=== PATIENT | male | born 1940 | race Caucasian/White ===

== ENCOUNTER 2020-10-23 21:27 | Inpatient (IN) | payer OTHER ==
[~2020-10-23] VITALS: Ht 177.8 cm; Wt 89.2 kg
[2020-10-23 21:33] VITALS: BP 187/99
[2020-10-23 22:05] LABS: ABSOLUTE EOSINOPHILS 0.3 thou/uL (0.0-0.7); ABSOLUTE MONOCYTES 0.7 thou/uL (0.0-1.2); ABSOLUTE NEUTROPHILS 6.9 thou/uL (1.6-8.1); BASOPHILS 0.4 %; EOSINOPHILS 3.1 %; HEMATOCRIT 44.7 % (42.0-52.0); HEMOGLOBIN 15.3 gm/dL (14.0-18.0); LYMPHOCYTES 19.7 %; MCH 30.1 pg (26.0-34.0); MCHC 34.3 g/dL (28.0-37.0); MCV 87.8 fL (80.0-100.0); MPV 9.4 fl. (7.2-11.1); NUCLEATED RBCS 0 /100WBC; PLATELET COUNT* 221 thou/uL (150-400); POLYS 69.8 %; RBC 5.09 mil/uL (4.50-6.00); RDW-CV 12.9 % (10.5-14.5); WBC 9.9 thou/uL (4.0-11.0)
[2020-10-23 22:10] LABS: CREATININE 1.4 mg/dL (0.6-1.3)
[2020-10-23] MEDS ORDERED: ELIQUIS5 MG PO (22:12)
[2020-10-23] MEDS ORDERED: ASA81BEC PO (22:12)
[2020-10-23] MEDS ORDERED: CARBIDOPA-LEVO1 EAC5 PO (22:14)
[2020-10-23] MEDS ORDERED: B COMPLEX1 EACH PO (22:14)
[2020-10-23] MEDS ORDERED: CHOLECALCIFEROL1 GM PO (22:16)
[2020-10-23] MEDS ORDERED: COQ-1030 MG PO (22:17)
[2020-10-23] MEDS ORDERED: FISH OIL 1,0001 EAC9 PO (22:18)
[2020-10-23] MEDS ORDERED: ISOSORBIDE MONO60 M1 PO (22:19)
[2020-10-23] MEDS ORDERED: COZAAR 25 MG TA25 M1 PO (22:19)
[2020-10-23] MEDS ORDERED: ASPERCREME1 EACH TOP (22:19)
[2020-10-23 22:20] LABS: ALBUMIN 3.7 g/dL (3.4-5.0); MAGNESIUM 2.5 mg/dL (1.8-2.4); TOTAL BILIRUBIN 0.4 mg/dL (<0.1-1.0); TOTAL PROTEIN 7.8 g/dL (6.4-8.2)
[2020-10-23] MEDS ORDERED: TOPROL XL25 MG PO (22:22)
[2020-10-23] MEDS ORDERED: NITROSTAT0.4 M1 PO (22:23)
[2020-10-23] MEDS ORDERED: ROSUVASTATIN CA20 MG PO (22:23)
[2020-10-23] MEDS ORDERED: MIRALAX119 GM PO (22:23)
[2020-10-23] MEDS ORDERED: DONEPEZIL HCL 55 M1 PO (22:25)
[2020-10-24] VITALS (23 sets, daily range): BP systolic 100–186; BP diastolic 19–105
[2020-10-24 00:42] LABS: PROTIME 10.6 Seconds (9.20-11.50)
--- NOTE | 2020-10-24 02:56 | NUR ---
PT ARRIVED TO [facility] ROOM 214 AT 0030. PT ALERT ORIENTED. UP WITH ASSIST OF ONE. UNSTEADY GAIT. PT HAS TRUE DEAFNESS AND READS LIPS. COMMUNICATION IS DIFFICULT. PEN AND PAPER PROVIDED FOR COMMUNICATION. 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 PT DENIES PAIN CURRENTLY BUT SAYS IT COMES AND GOES WITH A PAIN SCORE OF 2/10 DISCRIBED A PRESSURE. PT INSTRUCTED TO CALL NURSE FOR INCREASING CP OR PRESSURE. PT SIGNED FALL CONTRACT AND HAS BEEN INSTRUCTED TO CALL NURSE IF NEEDING TO GET OOB. ARRIVED TO UNIT WITH HEPARIN QTT AT 1000 UNITS/HR SAME 10MLS/HR. NS STARTED AT 100MLS/HR. HEPARIN QTT ALARMING OCCLUSION. IV STARTED IN L FA FOR HEPARIN. R AC FOR NS. WCTM
--- NOTE | 2020-10-24 06:55 | NUR ---
PT AM TROP UP FROM 1.[address] GARCIA NOTIFIED. PT LATER STATED HE FELT AN INKLING NOT A PAIN. PT REFUSED A PAIN NUMBER. DR GARCIA NOTIFIED FOR PAIN MEDICATION ORDERS. MORPHINE 2 MG GIVEN. EKG DONE. PT STATES HE FEELS BETTER NOW. PT REMAINS NPO.
--- NOTE | 2020-10-24 10:26 | EKG ---
[place] [address] ELECTROCARDIOGRAM REPORT Name: RADHA RITCHIE Barbara Room: [address] ADM IN [facility].#: [id number] Admission: 10/23/20 Attend Phys: Kalli Rand, Discharge: Date of : 40 Date of Service: 10/23/202129 Report #: [id number] THIS REPORT FOR: //name// [facility] ED Test Date: 2020-10-23 Test Time: 21:30:03 Pat Name: RADHA RITCHIE Department: Room: [facility] Gender: M Batch Analyst: DIAMOND : 1940 Requested By: Karyn Dunham Order Number: [id number] MD: Thierry Castillo Measurements Intervals [place] Rate: 113 P: 145 UT: 180 QRS: -38 QRSD: 98 T: 130 QT: 316 QTc: 434 Interpretive Statements Sinus or ectopic atrial tachycardia Left axis deviation Anteroseptal infarct, old Repol abnrm suggests ischemia, lateral leads Baseline wander in lead(s) V5 No previous ECG available for comparison Electronically Signed On 10-24-2020 10:26:45 BALE OPENER by Thierry Castillo [email or web address] <ELECTRONICALLY SIGNED> By: Thierry Castillo MD, FACC 10/24/20 1026 29 29 Thierry Castillo MD, FACC /EPI
--- NOTE | 2020-10-24 11:54 | NUR ---
Pt out of room, spoke with via phone. Pt is normally A&O. Independent. No DME. Hx of HH post heart surgery at . No hx of SNF. Per , Pt has had a hx of falls from 1266-7504. Pt's PCP, is Dr Thierry Arias, with the [facility] in [place] [phone]. Pt had cath today, cards recommending transfer to . CM initiated transfer, faxed info and had radiology upload images to the cloud. Pt/ in agreement. EMTALA and ambulance forms initiated. Following transfer team p: [phone] f:[phone]
--- NOTE | 2020-10-24 14:12 | EKG ---
[place] [address] ELECTROCARDIOGRAM REPORT Name: RADHA RITCHIE Barbara Room: [address] ADM IN ..#: [id number] Admission: 10/23/20 Attend Phys: Kalli Rand, Discharge: Date of : 40 Date of Service: 10/24/20 0023 Report #: [id number] THIS REPORT FOR: //name// [facility] ED Test Date: 2020-10-24 Test Time: 00:23:35 Pat Name: RADHA RITCHIE Department: Room: [address] Gender: M Nuclear Criticality Safety Engineer: : 1940 Requested By: Karyn Dunham Order Number: [id number] Matt MD: Thierry Castillo Measurements Intervals [place] Rate: 81 P: 8 VT: 204 QRS: -43 QRSD: 99 T: 123 QT: 389 QTc: 452 Interpretive Statements Sinus rhythm Left anterior fascicular block Anterior infarct, old Repol abnrm suggests ischemia, lateral leads Compared to ECG 10/23/2020 21:30:03 rate has slowed Myocardial infarct finding still present Possible ischemia still present Electronically Signed On 10-24-2020 14:12:18 BANQUET STEWARD by Thierry Castillo [email or web address] <ELECTRONICALLY SIGNED> By: Thierry Castillo MD, FACC 10/24/20 1412 0023 Thierry Castillo MD, [facility] /EPI
--- NOTE | 2020-10-24 14:14 | EKG ---
[place] [address] ELECTROCARDIOGRAM REPORT Name: RADHA RITCHIE Room: [address] ADM IN [facility]#: [id number] Admission: 10/23/20 Attend Phys: Kalli Rand, Discharge: Date of : 40 Date of Service: 10/24/20613 Report #: [id number] THIS REPORT FOR: //name// [facility] Test Date: 2020-10-24 Test Time: 06:14:40 Pat Name: RADHA RITCHIE Department: Room: [address] Gender: M Wooden Furniture Polisher: [facility] : 1940 Requested By: Thierry Castillo Order Number: [id number] Matt MD: Thierry Castillo Measurements Intervals [place] Rate: 65 P: 31 VT: 240 QRS: -49 QRSD: 99 T: 149 QT: 482 QTc: 502 Interpretive Statements Sinus rhythm Prolonged VT interval old inferior infarction anterior infarct, age indeterminate Lateral leads are also involved Prolonged QT interval Electronically Signed On 10-24-2020 14:13:49 HOT MILL SUPERVISOR by Thierry Castillo [email or web address] <ELECTRONICALLY SIGNED> By: Thierry Castillo MD, FAC 10/24/20 1413 0614 Thierry Castillo MD, [facility] /EPI
--- NOTE | 2020-10-24 14:18 | EKG ---
[place] [address] ELECTROCARDIOGRAM REPORT Name: RADHA RITCHIE Room: [address] ADM IN [facility].#: [id number] Admission: 10/23/20 Attend Phys: Kalli Rand, Discharge: Date of : 40 Date of Service: 10/24/20 1152 Report #: [id number] THIS REPORT FOR: //name// [facility] Test Date: 2020-10-24 Test Time: 11:52:07 Pat Name: RADHA RITCHIE Department: Room: [address] Gender: M Pediatric Rn: CR : 1940 Requested By: Karyn Dunham Order Number: [id number] MD: Thierry Castillo Measurements Intervals [place] Rate: 62 P: 30 VA: 242 QRS: -58 QRSD: 100 T: 169 QT: 523 QTc: 532 Interpretive Statements Sinus rhythm Prolonged VA interval Left anterior fascicular block Anterolateral infarct, age indeterminate Abnormal T, consider ischemia, lateral leads Prolonged QT interval Compared to ECG 10/23/2020 21:30:03 Prolonged QT interval now present Myocardial infarct finding still present Possible ischemia still present Electronically Signed On 10-24-2020 14:17:56 INDUSTRIAL SAFETY AND HEALTH MANAGER by Thierry Castillo [email or web address] <ELECTRONICALLY SIGNED> By: Thierry Castillo MD, [facility] 10/24/20 1417 1152 1152 Thierry Castillo MD, [facility] /EPI
--- NOTE | 2020-10-24 16:25 | CARD ---
[address] [address] CARDIAC CATH REPORT Name: RADHA RITCHIE Room: [address] IN [facility]#: [id number] Admission: 10/23/20 Attend Phys: Kalli Rand MD Discharge: Date of : 40 Report #: [id number] THIS REPORT FOR: cc: FAM - No family physician/PCP FAM - No family physician/PCP ~ Thierry Castillo MD [facility] APPROVED REPORT Study performed: 10/24/2020 08:28:40 Patient Details Patient Status: In-Patient Room #: The patient is a 80 year-old male Event Personnel Thierry Castillo High Lift Driver, Lesa Hill RN RN, Gavino Barron ACID ETCH OPERATOR Monitor, Marjan Zambrano RTR Scrub Procedures Performed Right radial artery access, Left heart catheterization, Hemostasis with Vasc band Indication Non-STEMI , Cardiomyopathy, Chest pain Risk Factors Arterial Hypertension, Hypercholesterolemia, Coronary Artery Disease Previous Procedures/Diagnoses Previous PCI, Previous [place] Admission/Lab Medications/Medications given during procedure Thrombin Inhibitors Procedure Narrative The patient was brought electively to the Cardiac Catheterization Laboratory and was prepped and draped in a sterile manner. The right wrist was infiltrated with 2% Lidocaine subcutaneous anesthesia. A 6F Slender Glasgow sheath was inserted into the right radial artery. Coronary angiography was performed using coronary diagnostic catheters. The right coronary system was accessed and visualized with a JR4 6fr catheter. The left coronary system was accessed and visualized with a JL4 6fr catheter. [place] [address] CARDIAC CATH REPORT Name: RADHA RITCHIE Room: [address]#: [id number] Admission: 10/23/20 Attend Phys: Kalli Rand MD Discharge: Date of : 40 Report #: [id number] and visualized with a Pig 6fr catheter. Left ventricular/Aortic Valve gradient assessed via catheter pullback. Left ventriculogram was performed in COHEN projection. Closure device was deployed with a 6 Fr Vasc-Band Lng 27cm. The patient tolerated the procedure well and there were no complications associated with the procedure. There was no hematoma. Intraoperative Conscious Sedation Sedation start time: 09:19 Case end Time: 09:44 No sedation given. Fluoro Time: 3.5 minutes Dose: DAP 01976 cGycm2 962 mGy Contrast Type and Amount: Visipaque 190 ml Coronary Angiography The patient's coronary anatomy is right dominant. Diagnostic Cath Left Main 50% distal stenosis LAD mid stent that appeared chronically 100% occluded and filled distally by bridging collaterals Circumflex 0% stenosis OM2 90% proximal stenosis Right Coronary 60% proximal, 90% mid, and 95% distal stenosis Left Ventriculography The left ventricular ejection fraction is estimated to be 25-30%. Left ventricular wall motion abnormalities are present. There is 1+ mitral insufficiency. severe hypokinesis of the mid and distal anteroapical wall Hemodynamics The aortic pressure is 113/56 mmHg with a mean of 78 mmHg. The left ventricular pressure is 107/10 mmHg with a mean of mmHg. The left ventricular end diastolic pressure is 16 mmHg. There was no gradient across the aortic valve upon pullback. Pullback from the left ventricle to the aorta revealed no gradient across the aortic valve. Conclusion 1. chronicaly occluded stent in the mid lad 2. 90% stenosis of the second marginal branch of the circumflex 3. 90% mid and 95% distal stenosis of the rca 4. LVEF 25-30% [place] [address] CARDIAC CATH REPORT Name: RADHA RITCHIE Room: [address] IN [facility]#: [id number] Admission: 10/23/20 Attend Phys: Kalli Rand MD Discharge: Date of : 40 Report #: [id number] Recommendations CABG <ELECTRONICALLY SIGNED> By: Thierry Castillo MD, [facility] 10/24/20 1625 24 1625Dafranco Castillo MD, FACC /INF
--- NOTE | 2020-10-24 16:35 | NUR ---
Notified by JOSE SORIANO that patient need to transfer for open heart surgical need. Notified [facility] dept, notified pt is assigned to [facility] ([place], [place]) Called [place] [phone].Given number for Transition care/Transfer team Jazmine [phone]. Pt info given, Jazmine called back and gave MOD number for our MD to call [phone]. Notified [facility], that [facility] wants pt to transfer to their facility for surgery and gave MOD #.
--- NOTE | 2020-10-24 18:48 | NUR ---
ASSUMED PT CARE AT 0730, PT AOX4 BUT VERY HARD OF HEARING, NO C/O PAIN OR SHORTNESS OF BREATH. PT WORKED W/ CARDIOLOGY THIS MORNING AND WENT DOWN FOR CATH AT APPROX 0830, RT RADIAL SITE C/D/I W/ PRESSURE DEVICE IN PLACE. NO STENTS WERE PLACED R/T PT HAVING TOO MANY OCCLUSIONS SO ORDERS RECEIVED TO TRANSFER PT TO FOR POTENTIAL BYPASS SURGERY. PT STILL HAS HEPARIN DRIP GOING. PT NOTED TO HAVE LOW URINE OUTPUT, BLADDER SCANNED AND PT HAD 434 IN BLADDER AFTER VOIDING [address] DOTSON NOTIFIED AND ORDERS RECEIVED TO STRAIGHT CATH PT IF BLADDER HAS OVER 400 ML IN IT. PT URINATED AGAIN, 300 OUT, BLADDER SCANNED AND RETAINING APPROX 200 AT THIS POINT SO PT NOT STRAIGHT CATHED AT THIS TIME. PT GOT UP TO CHAIR FOR DINNER AND GOAL IS TO DECREASE URINARY RETENTION. MEDS PER MAR, HOURLY ROUNDING OBSERVED, FALL PRECAUTIONS IN PLACE, CALL LIGHT W/IN REACH.
[2020-10-25 04:00] VITALS: BP 116/71
--- NOTE | 2020-10-25 04:08 | NUR ---
INITAL ASSESSMENT PT STATED CHEST DISCOMFORT BUT WAS UNABLE TO RATE PAIN. BP ELEVATED 170S/105. MORPHINE 2MG GIVEN. PT BECAME DIAPHORETIC AND STATED THAT HE DID NOT FEEL BETTER. BP REMAINED HIGH. RAPID RESPONCE CALLED. DR GARCIA NOTIFIED. TOPROLOL XL ORDERED AND AMBIEN. BOTH GIVEN. PT SLEEPING BP COMING DOWN. 2144 BREATH SOUNDS WITH CRACKLES AND WHEEZES. DR GARCIA NOTIFIED LASIX GIVEN. VERY GOOD RESPONCE WITH LASIX. PT BECAME NAUSIATED. DR DOTSON NOTIFIED FOR TWICE FOR UPDATE AND ZOFRAN @ 2139. SECOND TIME FOR DAVIS ORDER @ 2144. THE DAVIS WAS PLACED WITHOUT DIFFICULTY. PTT DRAWN AT 0. LAB HAVING DIFFICULTY WITH EQUIPMENT. RESULT DID NOT GET BACK UNTIL 0122. HEPARIN ADJUSTED PER PROTOCAL. NEXT PTT DUE AT 0745. PT FEELING BETTER, NO NAUSIA, NO DIAPHORESIS. HE HAS DEVELOPED CONFUSION THROUGH OUT THE SHIFT POSSIBLY RT AMBIEN. TELEMETRY SHOWS SR/ST BBB THROUGHOUT THE SHIFT. 12 LEAD EKG INITALLY TAKEN IS UNCHANGED FROM PREVIOUS ONE. WCTM AND ASSESS
[2020-10-25 05:14] LABS: ANION GAP 13 mmol/L (7-16); BUN 12 mg/dL (7-18); CALCIUM 9.1 mg/dL (8.5-10.1); CHLORIDE 103 mmol/L (98-107); CHOLESTEROL 220 mg/dL (<200); CO2 23 mmol/L (21-32); CREATININE 1.3 mg/dL (0.6-1.3); GLUCOSE 126 mg/dL (70-99); HDL CHOLESTEROL 49 mg/dL (>40); LDL CHOLESTEROL 156 mg/dL (<100); POTASSIUM 4.1 mmol/L (3.5-5.1); SODIUM 139 mmol/L (136-145); TC:HDL 4.5 Ratio (Not establshd); TRIGLYCERIDE 79 mg/dL (<150); VLDL 16 mg/dL (<40)
[2020-10-25 05:21] LABS: SERUM ASSESSMENT Clear
[2020-10-25 12:00] VITALS: BP 111/62
--- NOTE | 2020-10-25 15:13 | EKG ---
[place] [address] ELECTROCARDIOGRAM REPORT Name: RADHA RITCHIE Room: [address] ADM IN [facility]#: [id number] Admission: 10/23/20 Attend Phys: Kalli Rand, Discharge: Date of : 40 Date of Service: 10/24/202024 Report #: [id number] THIS REPORT FOR: //name// [facility] Test Date: 2020-10-24 Test Time: 20:25:20 Pat Name: RADHA RITCHIE Department: Room: [address] Gender: M Furnace Clerk: [email or web address] : 1940 Requested By: Thierry Castillo Order Number: [id number] Matt MD: Thierry Castillo Measurements Intervals [place] Rate: 105 P: 92 UT: 210 QRS: -49 QRSD: 95 T: 156 QT: 341 QTc: 451 Interpretive Statements Sinus tachycardia Multiple ventricular premature complexes Left anterior fascicular block Probable anterior infarct, age indeterminate Lateral leads are also involved Baseline wander in lead(s) I,II,III,aVL,aVF,V1,V2,V3,V4,V5,V6 Compared to ECG 10/24/2020 11:52:07 Ventricular premature complex(es) now present Sinus rhythm no longer present First degree AV block no longer present Myocardial infarct finding still present Electronically Signed On 10-25-2020 15:13:07 KNUCKLE STRAP SEWER by Thierry Castillo [email or web address] <ELECTRONICALLY SIGNED> By: Thierry Castillo MD, [facility] 10/25/20 1513 24 24 Thierry Castillo MD, [facility] /EPI
[2020-10-25 16:25] VITALS: BP 108/63
[2020-10-25] MEDS ORDERED: METOPROLOL SUCC25 M1 PO (17:16)
[2020-10-25 18:30] VITALS: BP 108/63
--- NOTE | 2020-10-25 20:16 | NUR ---
Pt awaiting transport to [facility] for CTS. Pt's , Hannah, informed by phone that we now have room number, and she consents to transfer. Transfer had been approved this afternoon while Hannah was here at hospital visiting pt, but awaiting room number. JEEVAN Hern[place], to call report to RN at receiving hospital. VSS. Pt very hard of hearing, but aware that he will be tranferring to [facility] via ambulance tonight. Pt on heparin gtt and O2. Denies pain. Awaiting transport set up.
--- NOTE | 2020-10-25 21:11 | NUR ---
PT TRANSFERED TO [facility]IA [facility]. O2 AT 6 [address] [place]. HEPARIN QTT AT 997 UNITS/HR PER IV PUMP. DAVIS IN PLACE. NO BELONGINGS WITH PT.
--- NOTE | 2020-10-26 11:48 | CON ---
[address] [address] CONSULTATION Name: RADHA RITCHIE Room: [address]Avi#: [id number] Admission: 10/23/20 Attend Phys: Kalli Rand MD Discharge: 10/25/20 Date of : 40 Report #: [id number] THIS REPORT FOR: cc: FAM - No family physician/PCP FAM - No family physician/PCP ~ Thierry Castillo MD [facility] DATE OF SERVICE: 10/24/2020 CARDIOLOGY CONSULTATION HISTORY OF PRESENT ILLNESS: The patient is an 80-year-old white male who I was asked to see in the hospital after he complained of chest pain. The history was obtained from the patient. Unfortunately, he is almost completely deaf and there are no family members available. According to the patient, he had stents put in years ago at [facility]. He notes he had previous heart catheterization at the [facility]. He was apparently sent over to , but no additional stents were placed. The patient is not very active at this time. He had an episode of chest pain yesterday and called the ambulance. He was brought to [place]. On arrival, he had minimal chest discomfort after taking nitroglycerin. I was asked to see him for further evaluation and treatment. PAST MEDICAL HISTORY: Significant for hypertension, hyperlipidemia. No history of diabetes. He does have memory loss. He has a history of paroxysmal atrial fibrillation. CURRENT MEDICATIONS: Include Eliquis, aspirin, Sinemet, Imdur, losartan, metoprolol, Crestor, donepezil. ALLERGIES: He has no known drug allergies. SOCIAL HISTORY: He is . He and his live in [place], [place]. No smoking. No alcohol abuse. FAMILY HISTORY: Positive for heart disease. REVIEW OF SYSTEMS: There is no history of a stroke, asthma, liver disease, kidney disease, cancer. As mentioned, he does have a history of memory loss. PHYSICAL EXAMINATION: VITAL SIGNS: His blood pressure was 130/80, pulse 80. He is afebrile. HEENT: He is anicteric. Conjunctivae pink. Mucous membranes moist. NECK: Veins nondistended. No carotid bruits. CHEST: Clear to auscultation. CARDIOVASCULAR: [place] [address] CONSULTATION Name: GOLDEN RITCHIEELL Barbara Room: [address]#: [id number] Admission: 10/23/20 Attend Phys: Kalli Rand MD Discharge: 10/25/20 Date of : 40 Report #: [id number] ABDOMEN: Soft. EXTREMITIES: Had no edema. Posterior tibial pulse 3+. SKIN: Cool and dry. NEUROLOGIC: Nonfocal. DIAGNOSTIC DATA: His ECG last night showed a sinus rhythm. There were nonspecific ST and T-wave changes. Oh his workup, he had a portable chest x-ray that showed normal heart size, clear lung matt. LABORATORY DATA: Sodium 138, creatinine 1.4, glucose is 178. Liver function studies were normal. Troponin is 0.12 on admission, this morning it is 8.8. White blood cell count 9.9, hemoglobin 15.3. IMPRESSION AND RECOMMENDATIONS: 1. Non-ST elevation myocardial infarction. Recommend cardiac catheterization. 2. Coronary artery disease. Previous stent. The patient is on an aspirin a day, nitrates and a beta chaitanya. 3. Hard of hearing. This makes it difficult to communicate with the patient. I will attempt to speak to his spouse. 4. Hyperlipidemia. The patient is on a statin drug. 5. Hypertension. The patient is on an ARB and beta chaitanya. 6. Memory loss. The patient is on donepezil. 7. Paroxysmal atrial fibrillation. I would hold Eliquis at this time. <ELECTRONICALLY SIGNED> By: Thierry Castillo MD, FACC 10/26/20 1148 0830 0850Davigale Castillo MD, FACC /nt
== END 2020-10-25 20:45 | disposition short-term general hospital (02) | DRG 280 ==
LOC: M.ERS 21:27 → M.2W 23:21 → M.TBA-ER 23:21 → M.2W 10-24 00:06
PROVIDERS: Emergency Medicine; Internal Medicine Cardiovascular Disease; ADMIT Internal Medicine; ATTEND Internal Medicine
PROC: 4A023N7 Measurement of Cardiac Sampling and Pressure, Left Heart, Percutaneous Approach (ICD-10-PCS; principal; 2020-10-24)
PROC: B215YZZ Fluoroscopy of Left Heart using Other Contrast (ICD-10-PCS; principal; 2020-10-24)
PROC: B211YZZ Fluoroscopy of Multiple Coronary Arteries using Other Contrast (ICD-10-PCS; principal; 2020-10-24)
DX: I21.4 Non-ST elevation (NSTEMI) myocardial infarction (principal); I50.41 Acute combined systolic (congestive) and diastolic (congestive) heart failure; J96.01 Acute respiratory failure with hypoxia; T82.897A Other specified complication of cardiac prosthetic devices, implants and grafts, initial encounter; I25.5 Ischemic cardiomyopathy; I11.0 Hypertensive heart disease with heart failure; E78.5 Hyperlipidemia, unspecified; R41.81 Age-related cognitive decline; E11.9 Type 2 diabetes mellitus without complications; I25.10 Atherosclerotic heart disease of native coronary artery without angina pectoris; R41.3 Other amnesia; I48.0 Paroxysmal atrial fibrillation; Y82.8 Other medical devices associated with adverse incidents; Z20.828 Contact with and (suspected) exposure to other viral communicable diseases; Z95.5 Presence of coronary angioplasty implant and graft; Z79.82 Long term (current) use of aspirin; Z79.899 Other long term (current) drug therapy; Z79.01 Long term (current) use of anticoagulants; Y92.89 Other specified places as the place of occurrence of the external cause